=== PATIENT | male | born 1980 ===

== ENCOUNTER → 2022-03-23 11:17 | Outpatient (CLI) | payer OTHER, SELFPAY ==
--- NOTE | ~2022-03-23 | XR_ITS ---
EXAMINATION: XR chest 2V DATE: 03/23/2022 12:09 INDICATION: Wheezing TECHNIQUE: PA and lateral views of the chest are obtained. COMPARISON: None available FINDINGS: The lungs are free of acute opacities. Calcified pulmonary nodules are consistent with old granulomatous disease. There is mild scarring of the lung apices. There is no pleural effusion or pne umothorax. The cardiomediastinal silhouette is normal. The visualized bones and soft tissues are unre markable. IMPRESSION: 1. No acute cardiopulmonary abnormality. Reviewed, dictated and finalized at location B.
== END ==
PROVIDERS: PCP Family Medicine; Visit Provider Family Medicine
DX: E03.9 Hypothyroidism, unspecified (principal); J30.0 Vasomotor rhinitis; R06.2 Wheezing
CPT/HCPCS: 71046

== ENCOUNTER → 2022-05-11 09:41 | Outpatient (CLI) | payer OTHER, SELFPAY ==
--- NOTE | ~2022-05-11 | CT_ITS ---
EXAMINATION:CT diagnostic chest w con DATE: 05/11/2022 10:35 INDICATION: Shortness of breath. TECHNIQUE: Computed tomography (CT) of the chest was performed with 75 mL Omnipaque 300 intravenous c ontrast. Automated exposure control and iterative reconstruction technique were employed. The dose-le ngth product (DLP) was 161.37 mGy-cm. COMPARISON: Chest 2 views 03/23/2022 FINDINGS: There is mild scarring at the lung apices. Calcified right lung nodules and calcified right hilar and mediastinal lymph nodes are consistent with old granulomas disc disease. There are tree-in -bud opacities and centrilobular nodules in the right middle lobe, lingula, and basilar lower lobes. There are small airspace opacities in the right middle lobe and lingula. There is mild bronchiectasis in right middle lobe and lingula. No pleural effusion. The heart size is normal. No pericardial effu tommy. There is no pulmonary embolus. There is mild thoracic spondylosis. IMPRESSION: 1. Mild pneumonia involving the right middle lobe, lingula, and lower lobes. 2. Mild bronchiectasis in right middle lobe and lingula. Reviewed, dictated and finalized at location A.
== END ==
PROVIDERS: PCP Family Medicine; Visit Provider Family Medicine
DX: R06.2 Wheezing (principal); B36.9 Superficial mycosis, unspecified; R06.02 Shortness of breath; B35.1 Tinea unguium; R09.89 Other specified symptoms and signs involving the circulatory and respiratory systems; J18.9 Pneumonia, unspecified organism
CPT/HCPCS: 71260; Q9967